=== PATIENT | male | born 1975 | race Two or more races ===

== ENCOUNTER 2018-12-17 01:47 | Emergency (ER) | payer SELFPAY ==
[2018-12-17 02:23] VITALS: BP 121/84
--- NOTE | 2018-12-17 03:09 | ER Document Report ---
ED Skin Rash/Insect Bite/Abscs - General Chief Complaint: Rash Stated Complaint: RASH Time Seen by Provider: 12/17/18 02:25 Notes: Patient is a 43-year-old male that comes to the emergency department for chief complaint of a rash on both his arms for the past several weeks. He states it has worsened, it is very itchy, it is driving him crazy. He denies any fever or chills. He denies any other complaints. He does work landscaping. He denies history of the same. He denies any daily medications or known medical problems. Patient speaks Chinese as a first language and [place] as a second but he declines orthopedics nurse, states he wants to speak [place] for himself. TRAVEL OUTSIDE OF THE [place] IN LAST 30 DAYS: No Past Medical History - General Information source: Patient - Social History Smoking Status: Never Smoker Frequency of alcohol use: None Drug Abuse: None Lives with: Family Family History: Reviewed & Not Pertinent Patient has suicidal ideation: No Patient has homicidal ideation: No - Medical History Medical History: Negative Renal/ Medical History: Denies: Hx Peritoneal Dialysis Surgical Hx: Negative - Immunizations Immunizations up to date: Yes Hx Diphtheria, Pertussis, Tetanus Vaccination: Yes Review of Systems - Review of Systems Constitutional: No symptoms reported EENT: No symptoms reported Cardiovascular: No symptoms reported Respiratory: No symptoms reported Gastrointestinal: No symptoms reported Genitourinary: No symptoms reported Male Genitourinary: No symptoms reported Musculoskeletal: No symptoms reported Skin: See HPI Hematologic/Lymphatic: No symptoms reported Neurological/Psychological: No symptoms reported Physical Exam - Vital signs Vitals: Temp Pulse Resp BP Pulse Ox 97.5 F 57 L 16 121/84 100 12/17/18 02:21 12/17/18 02:21 12/17/18 02:21 12/17/18 02:21 12/17/18 02:21 - Notes Notes: GENERAL: Alert, interacts well. No acute distress. HEAD: Normocephalic, atraumatic. EYES: Pupils equal, round, and reactive to light. Extraocular movements intact. ENT: Oral mucosa moist, tongue midline. Oropharynx unremarkable. Airway patent. Nares patent, no nasal septal hematoma, TM's intact. NECK: Full range of motion. Supple. Trachea midline. LUNGS: Clear to auscultation bilaterally, no wheezes, rales, or rhonchi. No respiratory distress. HEART: Regular rate and rhythm. No murmur ABDOMEN: Soft, non-tender. Non-distended. Bowel sounds present in all 4 quadrants. GENITOURINARY: Deferred EXTREMITIES: Moves all 4 extremities spontaneously. No edema, normal radial and dorsalis pedis pulses bilaterally. No cyanosis. BACK: no cervical, thoracic, lumbar midline tenderness. No saddle anesthesia, normal distal neurovascular exam. NEUROLOGICAL: Alert and oriented x3. Normal speech. [cranial nerves II through XII grossly intact]. PSYCH: Normal affect, normal mood. SKIN: The extensor surface of both forearms have erythematous, excoriated areas, nontender, no overt heat, no induration or fluctuance, unremarkable otherwise. Course - Re-evaluation Re-evalutation: Evaluation is consistent with contact dermatitis. No signs of infection at this time. No other concerning symptoms noted. Patient does do landscaping. Because of this, discussed with patient, placed on prednisone tapering dose, recommended antihistamines and topical therapy, provided instructions in Chinese. Discussed expectations and return precautions. Patient states understanding and agreement. - Vital Signs Vital signs: Temp Pulse Resp BP Pulse Ox 97.5 F 57 L 16 121/84 100 12/17/18 02:21 12/17/18 02:21 12/17/18 02:21 12/17/18 02:21 12/17/18 02:21 Discharge - Discharge Clinical Impression: Skin rash Contact dermatitis Qualifiers: Contact dermatitis type: unspecified Contact dermatitis trigger: unspecified trigger Qualified Code(s): L25.9 - Unspecified contact dermatitis, unspecified cause Condition: Stable Disposition: HOME, SELF-CARE Additional Instructions: Ellison evaluacin es consistente con la dermatitis de contacto. [place] puede ser causado por contactos ambientales terry la hiedra venenosa o plantas similares. Recomiendo christelle la medicacin prednisona hasta que se haya sukh. Evite los carbohidratos (alimentos azucarados) mientras shiva esto. Puede christelle difenhidramina por la noche para ayudarlo a dormir, cetirizina bishop el da para la picazn, y puede ponerle tecnologa tecnu tpica (todos estos son de venta arlen). Seguimiento con un mdico de atencin primaria. Regrese si est peor (tiene dolor, fiebre, enrojecimiento o si algo no est breana). Prescriptions: Prednisone [Deltasone 20 mg Tablet] 20 mg PO DAILY 21 Days #42 tablet
== END 2018-12-17 03:17 | disposition home or self-care (01) ==
LOC: ER 01:47
DX: L25.9 Unspecified contact dermatitis, unspecified cause (principal)
CPT/HCPCS: 99282